=== PATIENT | female | born 1960 | race Two or more races ===

== ENCOUNTER 2020-07-23 06:59 | Day surgery (SDC) | payer OTHER ==
[~2020-07-23 06:59] MED LIST: ADDERALL 15 MG15 MG PO; ATIVAN1 M1 PO; CELEBREX100 MG PO; DITROPAN XL10 MG PO; DOXEPIN HCL150 MG PO; LAMICTAL100 M1 PO; LIORESAL I500 MCG/1 IT; LYRICA50 MG PO; OMEPRAZOLE MAGN20 MG PO; ROBAXIN-750750 MG PO
[2020-07-23] MEDS ORDERED: ALEVE220 M1 PO (15:41)
[2020-07-23] MEDS ORDERED: DUI500 PO (15:41)
[2020-07-23] MEDS ORDERED: ULTRACET PO (15:41)
== END 2020-07-23 20:20 | disposition home or self-care (01) ==
LOC: CIR.AMB 06:59
PROVIDERS: ATTEND Orthopaedic Surgery
DX: S52.021A Displaced fracture of olecranon process without intraarticular extension of right ulna, initial encounter for closed fracture (principal); M81.0 Age-related osteoporosis without current pathological fracture; Z20.828 Contact with and (suspected) exposure to other viral communicable diseases
CPT/HCPCS: 24685; 20902; C1776